=== PATIENT | female | born 1990 | race American Indian/Alaskan Native ===

== ENCOUNTER 2017-02-11 12:58 | Outpatient (CLI) | payer OTHER ==
[2017-02-11] MEDS ORDERED: LACTATED RINGERS 500 ML IV ONE (13:16)
--- NOTE | 2017-02-11 16:03 | Ultrasound Report ---
OB ULTRASOUND GREATER THAN 14 WEEKS INDICATION: well being. Abdominal pain, multiple falls. COMPARISON: None similar at this institution. TECHNIQUE: Transabdominal grayscale ultrasound with Doppler interrogation. Gestation: Garcia Position: Cephalic Amniotic Fluid: WNL <24 weeks, subjective Placenta: Posterior, fundal, right lateral; no evidence of abruption. Placental Grade: 0 Heart Rate: 152 BPM Cervical length: 3.7 cm (Normal > 3 cm) ANATOMY VISUALIZED: Stomach Kidneys Bladder Diaphragm 4 Chamber Heart Heart 3 vessel cord Abd. Cord Insert The following are not demonstrated due to maternal body habitus or lie: Spine, neuroanatomy BPD: 4.7 cm = 20 w 2 d HC: 17.9 cm = 20 w 2 d AC: 13.8 cm = 19 w 1 d FL: 3.5 cm = 21 w 1 d HC/AC Ratio: 1.3 Cephalic Index: 7.95 Estimated Weight: 334 grams Clinical age = 21 w 6 d EDC: 06/18/2017 US Gest. Age = 20 w 2 d EDC: 06/29/2017 NOTE: Maternal urinary bladder incidentally noted filled with diffuse low level echoes/debris that may also be correlated for clinically and with urine analysis, as appropriate. CONCLUSION: Single, viable intrauterine gestation with ultrasound estimated age of 20 weeks and 2 days and EDC of 06/29/2017, currently in cephalic lie with details, as above. Diffuse echoes/debris within the maternal urinary bladder also noted. Please correlate. Thank you for the opportunity to participate in this patient's care.
[2017-02-11 16:55] LABS: Basophils % (Auto) 0.6 % (0.0-1.8); Eosinophils % (Auto) 0.2 % (0.0-4.3); Hematocrit 31.5 % (30.3-42.9); Hemoglobin 10.7 gm/dl (10.1-14.3); Mean Corpuscular HGB Conc 34 % (30-34); Mean Corpuscular Hemoglobin 29 pg (28-32); Mean Corpuscular Volume 86 fl (79-97); Platelet Count 281 K/mm3 (140-440); Red Blood Count 3.64 M/mm3 (3.65-5.03); Red Cell Distribution Width 13.6 % (13.2-15.2); White Blood Count 9.2 K/mm3 (4.5-11.0)
[2017-02-11 17:15] LABS: HIV-1 Antigen p24 Non React (Non React); HIVR-1/2 Ab Non React (Non React)
[2017-02-11 18:05] LABS: Urine Drugs of Abuse Note Disclamer
[2017-02-11] MEDS ORDERED: TYLENOL ONE (18:28)
[2017-02-11] MEDS ORDERED: TYLENOL PO ONE (18:28)
[2017-02-11 18:59] LABS: Bacteria,Urine 1+ /HPF (Negative); Bilirubin,Urine NEG (Negative); Blood,Urine NEG (Negative); Ketones,Urine 20 mg/dL (Negative); Leukocyte Esterase,Urine LG (Negative); Mucus,Urine FEW /HPF; Nitrite,Urine POS (Negative); Protein,Urine <15 mg/dL mg/dL (Negative); RBC,Urine < 1.0 /HPF (0.0-6.0)
== END 2017-02-11 18:35 | disposition home or self-care (01) ==
LOC: TRG 12:58 → LD 15:47 → TRG 18:35
PROVIDERS: ATTEND Obstetrics & Gynecology
DX: O26.892 Other specified pregnancy related conditions, second trimester (principal); R10.9 Unspecified abdominal pain; O47.02 False labor before 37 completed weeks of gestation, second trimester; Z3A.20 20 weeks gestation of pregnancy
CPT/HCPCS: 36415; 59025; 76805; 80307; 81001; 82731; 85025; 86592; 86706; 86762; 86850; 86900; 86901; 87806; 96360; J7120